=== PATIENT | male | born 1950 | race African-American/Black ===

== ENCOUNTER 2017-02-07 05:12 | Emergency (ER) | payer MEDICARE ==
[2017-02-07] MEDS ORDERED: predniSONE 20 MG TAB ONE (05:49)
[2017-02-07] MEDS ORDERED: Indomethacin 25 mg Capsule ONE (05:49)
== END 2017-02-07 06:00 | disposition home or self-care (01) ==
LOC: MADERS 05:12
DX: M10.9 Gout, unspecified (principal); I10 Essential (primary) hypertension; F17.210 Nicotine dependence, cigarettes, uncomplicated; Z79.899 Other long term (current) drug therapy
CPT/HCPCS: 99283; J7506

== ENCOUNTER 2017-09-19 01:29 | Emergency (ER) | payer MEDICARE ==
[2017-09-19] MEDS ORDERED: Naproxen 500 MG TAB ONE (03:04)
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
== END 2017-09-19 03:10 | disposition home or self-care (01) ==
LOC: MADERS 01:29
DX: S22.32XA Fracture of one rib, left side, initial encounter for closed fracture (principal); I10 Essential (primary) hypertension; K21.9 Gastro-esophageal reflux disease without esophagitis; M10.9 Gout, unspecified; F17.210 Nicotine dependence, cigarettes, uncomplicated; W22.8XXA Striking against or struck by other objects, initial encounter

== ENCOUNTER 2018-05-28 23:55 | Emergency (ER) | payer MEDICARE ==
[2018-05-29] MEDS ORDERED: Lidocaine 2% w/Epinephrine 1:200K 20 ML VIAL ONE (00:37)
[2018-05-29] MEDS ORDERED: Colchicine 0.6 MG TAB ONE ×3 (00:49→00:59)
[2018-05-29] MEDS ORDERED: traMADol HCl 50 MG TAB ONE (00:52)
--- NOTE | 2018-05-29 08:55 | RAD ---
RIGHT WRIST THREE VIEWS: History: 67-year-old male with history of right hand and wrist pain for three days. FINDINGS/IMPRESSION: Mild degenerative changes. No acute fracture or dislocation. POS: [facility]
[2018-05-29 14:11] LABS: BF Color Yellow; BF RBC Count - Manual 660 /cumm; BF WBC/Nonhematics Ct. - Manua 32580 /cumm; Body Fluid Source SYNOVIAL FLUID; Clarity Cloudy/Turbid (Clear); Tube # EDTA
[2018-05-29 14:28] LABS: BF Segmented Neutrophils 88 %; Cell Count Non Hematic 12 %
== END 2018-05-29 01:55 | disposition home or self-care (01) ==
LOC: MADERS 23:55
DX: M25.531 Pain in right wrist (principal); M10.9 Gout, unspecified; K21.9 Gastro-esophageal reflux disease without esophagitis; I10 Essential (primary) hypertension; F17.210 Nicotine dependence, cigarettes, uncomplicated
CPT/HCPCS: 20605; 82945; 85060; 87070; 87205; 89051; 89060

== ENCOUNTER 2018-09-10 09:39 | Emergency (ER) | payer MEDICARE | END 2018-09-10 11:24 | disposition home or self-care (01) | LOC: MADERS 09:39 | DX: M25.562 Pain in left knee (principal); M25.522 Pain in left elbow; G89.29 Other chronic pain; I10 Essential (primary) hypertension; K21.9 Gastro-esophageal reflux disease without esophagitis; M10.9 Gout, unspecified; F17.210 Nicotine dependence, cigarettes, uncomplicated; Z79.899 Other long term (current) drug therapy | CPT/HCPCS: 99281 ==

== ENCOUNTER 2018-09-11 06:30 | Emergency (ER) | payer MEDICARE | END 2018-09-11 07:45 | disposition home or self-care (01) | LOC: MADERS 06:30 | DX: M25.522 Pain in left elbow (principal); K21.9 Gastro-esophageal reflux disease without esophagitis; M10.9 Gout, unspecified; F17.210 Nicotine dependence, cigarettes, uncomplicated; Z79.899 Other long term (current) drug therapy | CPT/HCPCS: 99283 ==

== ENCOUNTER 2020-03-28 10:54 | Emergency (ER) | payer MEDICARE | END 2020-03-28 12:00 | disposition home or self-care (01) | LOC: MADERS 10:54 | DX: L25.9 Unspecified contact dermatitis, unspecified cause (principal); K21.9 Gastro-esophageal reflux disease without esophagitis; I10 Essential (primary) hypertension; M10.9 Gout, unspecified; F17.210 Nicotine dependence, cigarettes, uncomplicated; Z79.899 Other long term (current) drug therapy | CPT/HCPCS: 99282 ==

== ENCOUNTER 2022-01-10 17:51 | Emergency (ER) | payer MEDICARE ==
[~2022-01-10 17:51] MED LIST: Iopamidol 370 76% 125 ML VIAL FS ONE
[2022-01-10] MEDS ORDERED: Sodium Chloride 0.9% 500 ML ONE (18:10)
[2022-01-10] MEDS ORDERED: Enoxaparin Sodium 30 MG/0.3 ML SYRINGE ONE (18:10)
[2022-01-10] MEDS ORDERED: Enoxaparin Sodium 40 MG/0.4 ML SYRINGE ONE (18:10)
[2022-01-10] MEDS ORDERED: Aspirin Chewable 81 MG TAB ONE (18:10)
[2022-01-10 18:19] LABS: #Basophils 0.2 thou/uL (0.0-0.2); #Lymphocytes 1.6 thou/uL (1.20-3.40); #Monocytes 1.1 thou/uL (0.11-0.59); #Neutrophils 5.8 thou/uL (1.40-6.50); %Basophils 1.9 % (0.0-1.0); %Lymphocytes 18.3 % (21.0-51.0); %Monocytes 12.7 % (0.0-10.0); %Neutrophils 67.1 % (42.0-75.0); Hemoglobin 15.2 g/dL (14.0-18.0); Mean Corpuscular HGB CONC 32.9 g/dL (32.0-36.0); Mean Corpuscular Hemoglobin 32.9 pg (27.0-31.0); Mean Corpuscular Volume 99.9 fL (78.0-98.0); Mean Platelet Volume 11.4 fL (7.4-10.4); Platelet Count 136 thou/uL (130-400); RBC Distribution Width 12.4 % (11.5-14.5); Red Blood Cell (RBC) Count 4.62 mill/uL (4.70-6.10); White Blood Cell (WBC) Count 8.7 thou/uL (4.8-10.8)
[2022-01-10 18:27] LABS: Prothrombin Time 13.7 sec (12.0-14.7)
[2022-01-10 18:28] LABS: PTT 32.8 sec (22.9-36.1)
[2022-01-10 18:30] LABS: D-Dimer Test 0.67 *mcg/mL (0.27-0.43)
[2022-01-10 18:33] LABS: ALT (SGPT) 19 U/L (8-55); AST (SGOT) 32 U/L (5-34); Albumin 3.9 g/dL (3.4-4.8); Alkaline Phosphatase 66 U/L (40-110); Anion Gap 18 mmol/L (10-20); BUN (Urea Nitrogen) 9 mg/dL (8.4-25.7); Bilirubin, Total 1.2 mg/dL (0.2-1.2); Calc. Creatinine Clearance 0 mL/min (70-130); Calcium 9.4 mg/dL (7.8-10.44); Carbon Dioxide 26 mmol/L (23-31); Chloride 101 mmol/L (98-107); Glucose 112 mg/dL (80-115); Lipase 12 U/L (8-78); Potassium 3.9 mmol/L (3.5-5.1); Protein, Total 6.9 g/dL (5.8-8.1)
[2022-01-10 18:51] LABS: CKMB 0.9 ng/mL (0-6.6)
[2022-01-10 19:07] LABS: Sodium 141 mmol/L (136-145)
[2022-01-10] MEDS ORDERED: hydrALAZINE 20 MG/ML VIAL ONE (19:26)
[2022-01-10] MEDS ORDERED: Nitroglycerin 2% Ointment 1 INCH/1 GM Packet ONE (19:26)
== END 2022-01-10 21:38 | disposition short-term general hospital (02) ==
LOC: MADERS 17:51
DX: R07.9 Chest pain, unspecified (principal); I10 Essential (primary) hypertension; I48.91 Unspecified atrial fibrillation; K21.9 Gastro-esophageal reflux disease without esophagitis; M10.9 Gout, unspecified; F17.210 Nicotine dependence, cigarettes, uncomplicated; Z79.899 Other long term (current) drug therapy
CPT/HCPCS: 71045; 71275; 80053; 82553; 83690; 83880; 84484; 85025; 85379; 85610; 85730; 93005; 94760; 96372; 96374; J0360; J1650; J7030; Q9967

== ENCOUNTER 2023-03-14 10:48 | Outpatient (CLI) | payer MEDICARE | END 2023-03-14 10:49 | disposition home or self-care (01) | LOC: MADRAD 10:48 | PROVIDERS: ATTEND Internal Medicine | DX: I10 Essential (primary) hypertension (principal); J44.9 Chronic obstructive pulmonary disease, unspecified | CPT/HCPCS: 71046 ==

== ENCOUNTER 2023-05-21 09:15 | Emergency (ER) | payer MEDICARE ==
[2023-05-21 10:00] LABS: Hematocrit 41.3 % (42.0-52.0); Hemoglobin 13.3 g/dL (14.0-18.0); Mean Corpuscular HGB CONC 32.3 g/dL (32.0-36.0); Mean Corpuscular Volume 102.1 fl (78.0-98.0); Mean Platelet Volume 9.2 fL (7.4-10.4); Platelet Count 169 10x3/uL (130-400); RBC Distribution Width 11.6 % (11.5-14.5); Red Blood Cell (RBC) Count 4.04 mill/uL (4.70-6.10); White Blood Cell (WBC) Count 7.4 10x3/uL (4.8-10.8)
[2023-05-21 10:05] LABS: ALT (SGPT) 25 U/L (8-55); AST (SGOT) 45 U/L (5-34); Albumin 4.2 g/dL (3.4-4.8); Alkaline Phosphatase 77 U/L (40-110); Anion Gap 16 mmol/L (10-20); BUN (Urea Nitrogen) 7 mg/dL (8.4-25.7); Bilirubin, Total 0.8 mg/dL (0.2-1.2); Calc. Creatinine Clearance 0 mL/min (70-130); Calcium 9.9 mg/dL (7.8-10.44); Carbon Dioxide 25 mmol/L (23-31); Chloride 95 mmol/L (98-107); Estimated GFR 93; Globulin 3.8 g/dL (2.4-3.5); Glucose 129 mg/dL (83-110); Lipase 24 U/L (8-78); Potassium 3.3 mmol/L (3.5-5.1); Sodium 133 mmol/L (136-145)
[2023-05-21 10:13] LABS: Band 2 % (5-11); Lymphocytes 21 % (21-51); MDiff Complete? YES; Neutrophil 62 % (42-75)
[2023-05-21 10:14] LABS: Anisocytosis SLIGHT = 6-15 cells (100X) (0-5/hpf); Monocytes 15 % (0-10); Platelet Adequacy Comment Appears Adequate
== END 2023-05-21 10:55 | disposition home or self-care (01) ==
LOC: MADERS 09:15
DX: R07.9 Chest pain, unspecified (principal); R14.1 Gas pain; K21.9 Gastro-esophageal reflux disease without esophagitis; I10 Essential (primary) hypertension; Z79.899 Other long term (current) drug therapy; F17.210 Nicotine dependence, cigarettes, uncomplicated
CPT/HCPCS: 71045; 80053; 83690; 84484; 85025; 93005; 94760

== ENCOUNTER 2024-07-27 09:17 | Emergency (ER) | payer MEDICARE ==
[2024-07-27 09:55] LABS: #Basophils 0.1 thou/uL (0.0-0.2); #Eosinophils 0.1 thou/uL (0.0-0.7); #Lymphocytes 1.5 thou/uL (1.20-3.40); #Monocytes 0.4 thou/uL (0.11-0.59); #Neutrophils 1.4 thou/uL (1.40-6.50); %Basophils 1.8 % (0.0-1.0); %Lymphocytes 43.3 % (21.0-51.0); %Monocytes 12.4 % (0.0-10.0); %Neutrophils 39.5 % (42.0-75.0); Hematocrit 32.3 % (42.0-52.0); Hemoglobin 10.7 g/dL (14.0-18.0); Mean Corpuscular Hemoglobin 32.3 pg (27.0-31.0); Mean Corpuscular Volume 97.9 fl (78.0-98.0); Mean Platelet Volume 7.5 fL (7.4-10.4); Platelet Count 150 10x3/uL (130-400); RBC Distribution Width 11.7 % (11.5-14.5); White Blood Cell (WBC) Count 3.5 10x3/uL (4.8-10.8)
[2024-07-27 09:59] LABS: Prothrombin Time 13.2 sec (12.0-14.7)
[2024-07-27 10:00] LABS: PTT 31.6 sec (22.9-36.1)
[2024-07-27 10:09] LABS: ALT (SGPT) 18 U/L (8-55); AST (SGOT) 38 U/L (5-34); Albumin 3.5 g/dL (3.4-4.8); Alkaline Phosphatase 63 U/L (40-110); Anion Gap 17 mmol/L (10-20); BUN (Urea Nitrogen) 9 mg/dL (8.4-25.7); Bilirubin, Total 0.2 mg/dL (0.2-1.2); Calc. Creatinine Clearance 0 mL/min (70-130); Calcium 9.2 mg/dL (7.8-10.44); Carbon Dioxide 21 mmol/L (23-31); Chloride 105 mmol/L (98-107); Estimated GFR 90; Globulin 2.9 g/dL (2.4-3.5); Glucose 85 mg/dL (83-110); Potassium 3.9 mmol/L (3.5-5.1); Protein, Total 6.4 g/dL (5.8-8.1); Sodium 139 mmol/L (136-145)
== END 2024-07-27 10:41 | disposition home or self-care (01) ==
LOC: MADERS 09:17
DX: R04.0 Epistaxis (principal); D64.9 Anemia, unspecified; I10 Essential (primary) hypertension; F17.210 Nicotine dependence, cigarettes, uncomplicated
CPT/HCPCS: 36415; 80053; 85025; 85610; 85730; 99283